=== PATIENT | female | born 1945 | race Caucasian/White ===

== ENCOUNTER 2017-09-14 08:03 | Day surgery (SDC) | payer MEDICARE, SELFPAY ==
[2017-09-14 08:20] VITALS: BP 153/94; PULSE 60; RESP 16; TEMP 36.6; O2SAT 98; BMI 27.5
[2017-09-14 08:51] LABS: Bedside Glucose 176 mg/dL (70-110)
--- NOTE | 2017-09-14 09:56 | PCM.DC.URO ---
Discharge Diet: Light diet - advance as tolerated Discharge Activity: Return to Normal Activity Instructions: Shock Wave Lithotripsy Allergies/Adverse Reactions: Allergies ciprofloxacin [From Cipro] Adverse Reaction (Verified 09/07/17 09:18) TINGLING/ITCHY doxycycline Adverse Reaction (Verified 09/07/17 09:18) Other Medications to take at Discharge Fluticasone 0.05% [Flonase Nasal [place]] 1 spray PO DAILY PRN 12/11/16 Metoprolol Tartrate 1 tab PO BID 12/11/16 Multivitamin [Multiple Vitamins] 1 each PO DAILY 12/11/16 Zolpidem Tartrate 5 mg PO QHS PRN PRN 12/11/16 Acetaminophen [Tylenol Tablet] 650 mg PO Q6H PRN PRN #0 tablet 12/13/16 [place] 1,000 mg PO DAILY 12/20/16 Hydrochlorothiazide [Hctz] 12.5 mg PO DAILY 12/20/16 Insulin Aspart [Novolog Flexpen (BKC)] 2 - 6 units SC TIDCM 12/20/16 Insulin Glargine [Lantus SoloStar Pen] 32 units SQ QHS 12/20/16 Aspirin [Aspir-Low] 2 tab PO QHS 09/07/17 Hydrocodone/Acetaminophen [[place] 5-325 Tablet] 1 ea PO Q4H PRN PRN #14 tab 09/14/17 The following prescriptions were given: Hydrocodone/Acetaminophen [[place] 5-325 Tablet] 1 ea PO Q4H PRN PRN #14 tab PRN Reason: Pain Primary Care Physician: Mike Farah DO [Primary Care Provider] - Please Follow Up With: Dejuan Mcfadden MD When: please call to make an appointment, with an xray
--- NOTE | 2017-09-14 09:59 | DCINST_ITS ---
Discharge Diet: Light diet - advance as tolerated Discharge Activity: Return to Normal Activity Instructions: Shock Wave Lithotripsy Allergies/Adverse Reactions: Allergies ciprofloxacin [From Cipro] Adverse Reaction (Verified 09/07/17 09:18) TINGLING/ITCHY doxycycline Adverse Reaction (Verified 09/07/17 09:18) Other Medications to take at Discharge Fluticasone 0.05% [Flonase Nasal [place]] 1 spray PO DAILY PRN 12/11/16 Metoprolol Tartrate 1 tab PO BID 12/11/16 Multivitamin [Multiple Vitamins] 1 each PO DAILY 12/11/16 Zolpidem Tartrate 5 mg PO QHS PRN PRN 12/11/16 Acetaminophen [Tylenol Tablet] 650 mg PO Q6H PRN PRN #0 tablet 12/13/16 [place] 1,000 mg PO DAILY 12/20/16 Hydrochlorothiazide [Hctz] 12.5 mg PO DAILY 12/20/16 Insulin Aspart [Novolog Flexpen (BKC)] 2 - 6 units SC TIDCM 12/20/16 Insulin Glargine [Lantus SoloStar Pen] 32 units SQ QHS 12/20/16 Aspirin [Aspir-Low] 2 tab PO QHS 09/07/17 Hydrocodone/Acetaminophen [[place] 5-325 Tablet] 1 ea PO Q4H PRN PRN #14 tab 09/14 The following prescriptions were given: Hydrocodone/Acetaminophen [[place] 5-325 Tablet] 1 ea PO Q4H PRN PRN #14 tab PRN Reason: Pain Primary Care Physician: Mike Farah DO [Primary Care Provider] - Please Follow Up With: Dejuan Mcfadden MD When: please call to make an appointment, with an xray
[2017-09-14] MEDS: Cefazolin 2 GM in 0.9% Normal Saline 100 ML IV (10:10)
[2017-09-14 10:57] VITALS: BP 153/94; BP 162/66; PULSE 81; RESP 18; TEMP 36.3; O2SAT 92
--- NOTE | 2017-09-14 11:08 | PCM.OPRPT ---
Problem List (1) Renal calculus, left Status: Acute Report of Operation Date of Procedure: 09/14/17 Pre-Operative Diagnosis: Left renal calculi Post-Operative Diagnosis: Same Surgery/Procedure Performed:: Left extracorporeal shockwave lithotripsy Description of Surgical Findings:: 72-year-old female taken back to the operating room at the smooth induction of general anesthesia we found the stone in the left kidney under fluoroscopy the stone was positioned in the F2 focal point of the lithotripter machine we then proceeded with the shockwave treatment of the stone stone was monitored during the treatment nature of the stone stayed in F2 focal point a total of 3000 shockwaves were delivered at a rate of 120 and at the end of the treatment cycle the stone were broken up really well. Patient anesthetic was reversed and we can see her back in a few weeks with an x-ray. Type of Anesthesia:: General - Admit VTE Documentation VTE Present on Admission: No VTE Mechan Device Prophylaxis: SCD's
[2017-09-14 11:16] LABS: Bedside Glucose 147 mg/dL (70-110)
[2017-09-14 11:19] VITALS: BP 127/67; BP 153/94; PULSE 73; RESP 18; TEMP 36.1; O2SAT 96
[2017-09-14 12:00] VITALS: BP 153/94
== END 2017-09-14 12:20 | disposition home or self-care (01) ==
LOC: SDC 08:04 → AC 08:04
PROVIDERS: Family Provider Student in an Organized Health Care Education/Training Program; PCP Student in an Organized Health Care Education/Training Program; Visit Provider Urology
PROC: (CPT 50590; principal; 2017-09-14 10:10)
DX: N20.0 Calculus of kidney (principal); N28.1 Cyst of kidney, acquired; Z87.442 Personal history of urinary calculi; N30.00 Acute cystitis without hematuria; I10 Essential (primary) hypertension; E11.9 Type 2 diabetes mellitus without complications; Z79.4 Long term (current) use of insulin; D41.02 Neoplasm of uncertain behavior of left kidney; Z85.3 Personal history of malignant neoplasm of breast; Z90.13 Acquired absence of bilateral breasts and nipples; Z79.82 Long term (current) use of aspirin; Z79.899 Other long term (current) drug therapy; E66.9 Obesity, unspecified; Z68.25 Body mass index [BMI] 25.0-25.9, adult; Z82.49 Family history of ischemic heart disease and other diseases of the circulatory system
CPT/HCPCS: 00873; 50590; 82962; J7120; J2405

== ENCOUNTER → 2017-09-17 08:25 | Outpatient (CLI) | payer MEDICARE, SELFPAY | PROVIDERS: Family Provider Student in an Organized Health Care Education/Training Program; PCP Student in an Organized Health Care Education/Training Program; Visit Provider Urology | DX: N20.0 Calculus of kidney (principal) ==

== ENCOUNTER → 2017-09-25 08:52 | Outpatient (CLI) | payer MEDICARE, SELFPAY ==
[2017-09-14 08:20] VITALS: BMI 27.5
[2017-09-14 11:19] VITALS: BP 127/67
--- NOTE | 2017-09-25 08:59 | RAD_ITS ---
STUDY: X-RAY - ABDOMEN/PELVIS REASON FOR EXAM: Female, 72 years old. History of kidney stones. TECHNIQUE: Two AP supine views of the abdomen and pelvis. COMPARISON: Comparison is made with prior study dated August 07, 2017. FINDINGS: There is a moderate amount of colonic fecal material. Once again, 2 small [id number] calcifications are seen in the lower pole of the left kidney. This measures 5 mm in greatest dimension. There are calcified phleboliths in the pelvis. There are diffuse degenerative changes of the visualized lumbar spine. Minimal levoscoliosis. RAD/Abdomen Single View IMPRESSION: 2 small adjacent calcifications in the lower pole of the left kidney. Electronically Signed: Jose Egan MD at 14:57 EST Tel [phone], Service support ,
== END ==
PROVIDERS: Family Provider Student in an Organized Health Care Education/Training Program; PCP Student in an Organized Health Care Education/Training Program; Visit Provider Urology
DX: N20.0 Calculus of kidney (principal)
CPT/HCPCS: 74018

== ENCOUNTER → 2017-10-31 13:00 | Outpatient (CLI) | payer MEDICARE, SELFPAY ==
--- NOTE | 2017-10-31 13:02 | US_ITS ---
STUDY: RENAL ULTRASOUND - COMPLETE REASON FOR EXAM: Female, 72 years old. Abnormal renal function tests, history of renal stones and recent lithotripsy TECHNIQUE: Transverse and longitudinal imaging of the kidneys and bladder was obtained using real-time ultrasound. COMPARISON: Renal ultrasound dated December 11, 2016; CT abdomen dated January 27, 2017 FINDINGS: RIGHT KIDNEY: The right kidney is normal in location. The right kidney measures 9.4 x 5.6 x 5.4 cm. There is cortical thinning. The renal cortex measures 1.0 cm. At least one cyst was measured in the mid pole measuring up to 1.5 cm in size. There is no dilatation of the collecting system. There are two echogenic foci in the right kidney measuring 4 mm each. LEFT KIDNEY: The left kidney is normal in location. The left kidney measures 8.8 x 4.8 x 4.4 cm. There is cortical thinning. The renal cortex measures 0.8 cm. There is no demonstrated renal mass. There is no dilatation of the collecting system. Approximately four echogenic foci were measured in the left kidney measuring up to 6 mm in size. BLADDER: The urinary bladder has a volume of 107 ml. The bladder shows a normal wall thickness. There is no demonstrated mass in the bladder. The right ureteral jet was visualized. The left ureteral jet was visualized. US/Kidney and Bladder IMPRESSION: The kidneys are small with cortical thinning consistent with medical renal disease. Echogenic foci were seen in both kidneys, possible calyceal stones. There is no hydronephrosis bilaterally. Electronically Signed: Christine Henriquez MD at 10:23 EDT Tel Direct: [phone], Service support ,
== END ==
PROVIDERS: Family Provider Student in an Organized Health Care Education/Training Program; PCP Student in an Organized Health Care Education/Training Program; Visit Provider Urology
DX: N20.0 Calculus of kidney (principal)
CPT/HCPCS: 76770

== ENCOUNTER → 2017-11-14 11:05 | Outpatient (CLI) | payer MEDICARE, SELFPAY ==
[2017-11-14 12:52] LABS: Microalbumin,Random Urine 8.6 mg/L (NO RANGE EST.); Microalbumin:Creatinine Ratio 19.8 mg/g CRE (<30 mg/g CRE)
== END ==
PROVIDERS: Family Provider Student in an Organized Health Care Education/Training Program; PCP Student in an Organized Health Care Education/Training Program; Visit Provider Internal Medicine Nephrology
DX: E11.9 Type 2 diabetes mellitus without complications (principal); N39.0 Urinary tract infection, site not specified
CPT/HCPCS: 36415; 82043; 82570; 87086; 87088; 87186

== ENCOUNTER → 2017-12-10 08:15 | Outpatient (CLI) | payer MEDICARE, SELFPAY ==
[2017-12-10 09:36] LABS: Albumin, Serum 3.5 g/dL (3.2-5.0); BUN 36 mg/dL (7-18); BUN/Creat Ratio 27.3 RATIO (10-20); Calcium,Total 8.9 mg/dL (8.5-10.1); Chloride 107 mmol/L (98-107); Creatinine, Serum 1.32 mg/dL (0.55-1.02); EST Glomerular Filtration Rate 42 mL/min (>60); Est Glom Filt Rate - Afr Amer 51 mL/min (>60); Glucose 143 mg/dL (74-106); Phosphorus 3.4 mg/dL (2.5-4.9); Potassium 4.2 mmol/L (3.5-5.1); Sodium Level 138 mmol/L (136-145); Uric Acid 6.3 mg/dL (2.6-6.0)
[2017-12-10 09:44] LABS: PTHIN 48.4 pg/mL (18.4-80.1)
== END ==
PROVIDERS: Family Provider Student in an Organized Health Care Education/Training Program; PCP Student in an Organized Health Care Education/Training Program; Visit Provider Internal Medicine Nephrology
DX: N20.0 Calculus of kidney (principal)
CPT/HCPCS: 36415; 80069; 83970; 84550

== ENCOUNTER → 2017-12-18 13:50 | Outpatient (CLI) | payer MEDICARE, SELFPAY | PROVIDERS: Family Provider Student in an Organized Health Care Education/Training Program; PCP Student in an Organized Health Care Education/Training Program; Visit Provider Internal Medicine Nephrology | DX: N39.0 Urinary tract infection, site not specified (principal) | CPT/HCPCS: 87086; 87088; 87186 ==

== ENCOUNTER → 2017-12-28 09:55 | Outpatient (CLI) | payer MEDICARE, SELFPAY | PROVIDERS: Family Provider Student in an Organized Health Care Education/Training Program; PCP Student in an Organized Health Care Education/Training Program; Visit Provider Internal Medicine Nephrology | DX: N39.0 Urinary tract infection, site not specified (principal) | CPT/HCPCS: 87086 ==

== ENCOUNTER 2025-06-22 12:00 | Outpatient (RCR) | payer MEDICARE, SELFPAY ==
--- NOTE | 2025-05-18 09:27 | HP.PTEVAL_ITS ---
Patient's Visit Information Visit Information Visit Information: ROSA MAIN is a 80 year old F referred to Physical Therapy by Dr. Flavio Bingham MD with a diagnosis of R knee OA and varus deformity.. Date of Evaluation: 05/18/25 Physical Therapist: Jason Solitario, DPT, OCS, CSCS Visit Plan Frequency: 3x /Week Duration: 4-6 Weeks Plan: 3x/week for 4-6, 2 to start. IE HEP quad stretch 30" 5x dailya dn get back to short walks, bike and still drumming per tolerance. without increasing pain. treat with instruction in and progression of hip and knee and core strength mat to start to home with pics, then gym. Ensure weaning back to home bike, walking for [place] vacation and drumming with verbal progreessions. Subjective Subjective: Hurt R kneee a couple months ago. Lives in [facility] and jogged to the [employer] [place] and R knee got painful with impact. had to ride back to house. No pain prior. Iced it. Hurt to walk on it. Used walker and cane since. Went to doctor ortho [facility] but it took a month. Slowly betteer over that month but lives [place] and has to do stuff. Zachery gave pain pill and x rays and MRI at [facility]. Has fractured yost bone and torn meniscus and ruptured roe cyst. Currenlty order is for OA and varus. No pain at rest. Medial pain when on it or if walks alot on it. Slips if pviot turning in bed or gets out of car. Sleep is fine. Acitvities: avoids walking for fitness and riding 3 wh bike. Basic ADLs: Dress self, showeer, bathroom. No stairs. Doing some stuff in hot tub and poll on vacattion lastweek. Hobbies: cooking and can do. Regular exercises: drumming at home, Has 3 wheel bike but avoids it b/c no one says she could. Pain R medial knee.: Pain Intensity (Out of 10): 3 Pain Intensity Range: 0 and 4 Objective Objective: R varus with ambulation slightly, compression sleeve on , I with adn without cane. Good balance. Steps reeciprocal with onee rail, no real pain. Trasnfer chair and bed I but hesitant. Full aROM B knees 0-122 wihtout pain, tightness present B quads but otherwise good flexibility. reflexes 2/3 patella dn achilles B sensation WNl B LE to gross Lite touches. strength hip abd and ext 3/5 B, flexion 3+/5, no pain. quads 3+/5, HSC 4- B. + scour. Good SLR without lag. No real pain with varus valgus. Balance/Special Test Scores Lower Extremity Functional Score: 48 Goals Goal 1:: I appropriate HEP for hip and knee strength gym or home Goal Time Frame: 4-6 Weeks Goal 2:: back to walking and biking and drumming 100% Goal Time Frame: 4-6 Weeks Goal 3:: readyl to go to [place] without limitation Goal Time Frame: 2-4 Weeks Goal 4:: 5 LEFS Goal Time Frame: 4-6 Weeks Rehabilitation Potential Physical Therapy Diagnosis: lack of activity effecting healing and mobility. Rehabilitation Potential: Good Anticipated Interventions Patient/Client Instruction: Educate patient on: Condition and Plan of Care For the Purpose of:: To decrease pain, To increase ROM, To improve nutrient delivery to tissue, To increase tolerance to activity/condition/position and To improve ability of physical actions for home/community/work/leisure Therapeutic Exercise to Include: Strength training, Flexibilty training and Gait and locomotor training For the Purpose of:: To decrease pain, To increase ROM, To improve muscle performance and motor function, To increase tolerance to activity/condition/position and To improve gait and locomotor functions Text: Thank you for the opportunity to evaluate your patient. For Medicare and Medicare HMO plans, please review the plan of care and approve it. It will need to be FAXED BACK to us at [phone] for Medicare purposes. For Medicare only, by signing this I certify the plan of care. Please let me know if there are questions or concerns regarding this plan of care. Physician Signature: Date:
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
== END 2025-06-22 19:00 | disposition home or self-care (01) ==
LOC: PT 12:00
PROVIDERS: PCP Student in an Organized Health Care Education/Training Program; Referring Provider Specialist; Visit Provider Specialist
DX: M21.161 Varus deformity, not elsewhere classified, right knee (principal); M17.11 Unilateral primary osteoarthritis, right knee
CPT/HCPCS: 97110; 97161; 97164; 97530